=== PATIENT | female | born 1990 | race Caucasian/White ===

== ENCOUNTER 2024-07-13 17:01 | Emergency (ER) | payer BC ==
[2024-07-13 17:14] VITALS: BP 102/65; PULSE 72; RESP 17; TEMP 97.9; BMI 25.9
[2024-07-13] MEDS ORDERED: SULFAMETHOXAZOLE/TRIMETHOPRIM 800MG/160MG D.S. TABLET ONE (18:25)
[2024-07-13] MEDS: SULFAMETHOXAZOLE/TRIMETHOPRIM 800MG/160MG D.S. TABLET PO ONE (18:26)
== END 2024-07-13 18:32 | disposition home or self-care (01) ==
LOC: FER 17:01
DX: L02.511 Cutaneous abscess of right hand (principal)
CPT/HCPCS: 99283-25

== ENCOUNTER 2024-07-14 21:21 | Emergency (ER) | payer BC ==
[2024-07-14 21:30] VITALS: BP 113/79; PULSE 68; RESP 18; TEMP 97.5; BMI 25.9
[2024-07-14 22:41] LABS: HEMATOCRIT 38.9 % (32.4-45.2); HEMOGLOBIN 13.7 G/dL (10.7-15.3); MCH 29.9 pg (25.7-33.7); MCHC 35.3 g/dl (32.0-36.0); MEAN CELL VOLUME 84.7 fl (80-96); MEAN PLT VOLUME 9.1 fl (7.5-11.1); PLATELET COUNT 198.6 10^3/uL (134-434); RBC 4.59 10^6/uL (3.60-5.2); RDW 13.9 % (11.6-15.6); WHITE BLOOD COUNT 4.7 10^3/uL (4.0-10.8)
[2024-07-14 23:04] LABS: ALBUMIN 4.4 g/dl (3.4-5.0); BILIRUBIN,TOTAL 0.7 mg/dl (0.2-1); CALCIUM 9.2 mg/dl (8.5-10.1); CREATININE 0.9 mg/dl (0.6-1.3); TOT PROT 6.5 g/dl (6.4-8.2)
[2024-07-14] MEDS ORDERED: DALBAVANCIN HCL 500 MG VIAL (RESTRICTED TO ID ONLY) IVPB ONE (23:13)
[2024-07-14] MEDS: DALBAVANCIN HCL 1,500 MG in DEXTROSE 5%-WATER - 500 ML IVPB ONE (23:35)
== END 2024-07-15 01:22 | disposition home or self-care (01) ==
LOC: FER 21:21
DX: L03.114 Cellulitis of left upper limb (principal); M79.602 Pain in left arm; M79.89 Other specified soft tissue disorders
CPT/HCPCS: 36415; 80053; 85027; 86140; 87040; 99284-25; J0875